=== PATIENT | female | born 1985 | race Caucasian/White ===

== ENCOUNTER → 2021-01-03 08:57 | Outpatient (BNVA) | payer BC, SELFPAY | PROVIDERS: Family Provider Obstetrics & Gynecology; Referring Provider Family Medicine; Visit Provider Specialist | DX: M25.561 Pain in right knee (principal) | CPT/HCPCS: 73560; 73565 ==

== ENCOUNTER 2021-01-03 11:52 | Outpatient (CLI) | payer BC, SELFPAY | END 2021-01-03 11:53 | disposition home or self-care (01) | LOC: SPT 11:53 | PROVIDERS: Family Provider Obstetrics & Gynecology; Visit Provider Specialist | DX: Z46.89 Encounter for fitting and adjustment of other specified devices (principal); M25.461 Effusion, right knee | CPT/HCPCS: 97760; L1832 ==

== ENCOUNTER → 2021-11-22 11:46 | Outpatient (BNVA) | payer BC, SELFPAY | PROVIDERS: Family Provider Obstetrics & Gynecology; Visit Provider Registered Nurse Neonatal Intensive Care | DX: Z32.00 Encounter for pregnancy test, result unknown (principal) | CPT/HCPCS: 81025 ==

== ENCOUNTER 2021-11-24 14:48 | Emergency (ER) | payer BC, MEDICAID, SELFPAY ==
[2021-11-24 14:54] VITALS: BP 120/80; PULSE 98; RESP 14; TEMP 36.9; O2SAT 98
--- NOTE | 2021-11-24 15:11 | W.ED.SOB ---
HPI - SOB/Dyspnea General: Chief Complaint: Shortness of Breath/Dyspnea Stated Complaint: SOB/cough Time Seen by Provider: 11/24/21 15:04 Source: patient Mode of arrival: ambulatory Limitations: no limitations History of Present Illness: HPI Narrative: 36-year-old female presents emergency room complaining cough shortness of breath last couple days she denies fever sweats chills anosmia myalgias or diarrhea. Cough is been nonproductive. She denies any history of asthma. She denies being a smoker. She has not taken anything for the previously been evaluated. MD elicited complaint: shortness of breath and cough Onset (ago): day(s) (3) Timing: intermittent Severity: mild Exacerbating factors: nothing Relieving factors: nothing Associated symptoms: Deny abdominal pain, chest congestion, chest pain, cough, diaphoresis, dizziness, extremity pain, fever(s), hemoptysis, lightheadedness, myalgias, nausea, orthopnea, palpitations, paresthesias, polydipsia, polyuria, rash, sense of impending doom, syncope or vomiting Review of Systems Const: Denies: fever(s) or diaphoresis ENMT: Denies: throat pain, ear or mastoid pain, nasal discharge or nasal congestion Card: Denies: chest pain, palpitations, lightheadedness, syncope or orthopnea Resp: Denies: hemoptysis or chest congestion GI: Denies: abdominal pain, nausea or vomiting : Denies: flank pain, difficulty voiding, dysuria, urinary frequency or urinary urgency Musc: Denies: extremity pain Skin/Breast: Denies: rash or pruritus Neuro: Denies: dizziness Endo: Denies: polyuria or polydipsia PFSH ED PFSH: Medical History No pertinent past medical history Surgical History History of placement of ear tubes Social History Smoking and tobacco status: never smoked Alcohol intake: never Female Reproductive History: Date of last menstrual period: 11/03/21 Physical Exam Const: COMMON NORMALS: no acute distress GENERAL APPEARANCE: cooperative and comfortable ORIENTATION/CONSCIOUSNESS: Yes awake, Yes oriented to person, Yes oriented to place and Yes oriented to time HENMT: COMMON NORMALS: normocephalic, atraumatic, hearing grossly normal bilaterally, external ears normal, EAC's normal, TM's normal bilaterally, Normal nasal mucous membranes and turbinates present, moist oral mucous membranes and oropharynx normal HEAD & SCALP: normocephalic and atraumatic NOSE: Normal nasal mucous membranes and turbinates present EXTERNAL EAR: Yes external ears normal EXTERNAL AUDITORY CANAL: EAC's normal TYMPANIC MEMBRANE: TM's normal bilaterally Neck/C-Spine: COMMON NORMALS: no JVD Resp: COMMON NORMALS: normal respiratory effort, No retractions, No use of accessory muscles and clear to auscultation bilaterally AUSCULTATION: clear to auscultation bilaterally Cardio: COMMON NORMALS: no JVD, regular rate, regular rhythm and No murmurs present (Cardio) RATE: regular rate RHYTHM: regular rhythm GI: COMMON NORMALS: Soft to palpation and No hepatosplenomegaly present AUSCULTATION: Yes normoactive bowel sounds PALPATION: Yes Soft to palpation, No Tenderness to palpation present (GI), No Guarding due to palpation present (GI) and Yes No hepatosplenomegaly present Extremity: COMMON NORMALS: normal to inspection, capillary refill normal, no clubbing, cyanosis or edema, no calf tenderness and no pedal edema Neuro: SENSORIUM/ORIENTATION: Yes oriented to person, Yes oriented to place and Yes oriented to time Skin: COMMON NORMALS: no rashes or lesions noted GENERAL SKIN EXAM: no rashes or lesions noted Course Vital Signs: Vital signs: Vital Signs Temperature 98.4 F 11/24/21 15:18 Pulse Rate 98 11/24/21 15:18 Respiratory Rate 14 11/24/21 15:18 Blood Pressure 120/80 11/24/21 15:18 Pulse Oximetry 98 11/24/21 15:18 MDM - SOB/Dyspnea Medical Decision Making Examination normal. Lungs are clear [place] discharge home with prednisone albuterol to use as needed follow-up primary care if not improving Medical Records I reviewed the patient's medical records. Discharge Plan Discharge Patient Disposition: Home Clinical Impression: Bronchitis Condition: Stable Prescriptions: New prednisone 20 mg tablet 20 mg PO TID Qty: 15 0RF Rx Instructions: 1 p.o. 3 times daily x3 days, 1 p.o. twice daily x2 days, 1 p.o. daily x2 days albuterol sulfate 90 mcg/actuation HFA aerosol inhaler 2 inh INHALATION Q4H PRN (Reason: shortness of breath or wheezing) Qty: 18 0RF No Action acetaminophen 500 mg capsule 500 mg PO Q6H PRN0RF Discharge Orders: Discharge ED (Routine); Ordered 11/24/21 Ordered By: Prem Miner Discharge Diet: Usual diet Discharge Activity: Increase activity as tolerated Patient Instructions: Opioid Safety Activity Restrictions/Additional Instructions: Follow-up with your primary care doctor if not improving. Coding Level of Care Code ED Tooth Cutter Contact Wheel for Alexia Santoyo
[2021-11-24 15:14] VITALS: BP 120/80; PULSE 98; RESP 14; TEMP 36.9; O2SAT 98
[2021-11-24 15:18] VITALS: BP 120/80; PULSE 98; RESP 14; TEMP 36.9; O2SAT 98
== END 2021-11-24 15:19 | disposition home or self-care (01) ==
PROVIDERS: Emergency Provider Family Medicine
DX: J40 Bronchitis, not specified as acute or chronic (principal)
CPT/HCPCS: 99283

== ENCOUNTER → 2024-05-23 10:43 | Outpatient (BNVA) | payer BC, SELFPAY | DX: R05.9 Cough, unspecified (principal) | CPT/HCPCS: 87400; 87426 ==

== ENCOUNTER 2024-06-11 12:46 | Emergency (ER) | payer BC, MEDICAID, SELFPAY ==
[2024-06-11 12:58] VITALS: BP 162/88; PULSE 96; RESP 16; TEMP 36.7; O2SAT 99; BMI 44.4
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
[2024-06-11 17:38] VITALS: BP 138/100; PULSE 116; O2SAT 95
--- NOTE | 2024-06-18 08:27 | DCPLANNER ---
Referral sent to [facility] ENT and Facial surgeon
== END 2024-06-11 17:41 | disposition home or self-care (01) ==
PROVIDERS: Emergency Provider Physician Assistant
DX: S09.8XXA Other specified injuries of head, initial encounter (principal); S00.83XA Contusion of other part of head, initial encounter; S00.511A Abrasion of lip, initial encounter; S00.512A Abrasion of oral cavity, initial encounter; S02.2XXA Fracture of nasal bones, initial encounter for closed fracture; Y04.2XXA Assault by strike against or bumped into by another person, initial encounter
CPT/HCPCS: 70450; 70486; 99284

== ENCOUNTER 2024-06-16 13:07 | Emergency (ER) | payer BC, MEDICAID, SELFPAY ==
[2024-06-16 13:16] VITALS: BP 121/79; PULSE 76; RESP 15; TEMP 36.5; O2SAT 98; BMI 44.4
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
[2024-06-16 14:20] VITALS: BP 127/82; PULSE 75; RESP 16; O2SAT 99
[2024-06-16 14:56] VITALS: BP 127/82; PULSE 75; O2SAT 99
== END 2024-06-16 14:57 | disposition home or self-care (01) ==
PROVIDERS: Emergency Provider Physician Assistant
DX: F07.81 Postconcussional syndrome (principal)
CPT/HCPCS: 70450; 99284